=== PATIENT | male | born 1960 | race Caucasian/White ===

== ENCOUNTER → 2020-10-02 | Outpatient (CLI) | payer OTHER ==
[~2020-10-02] MED LIST: HYDROCODON-ACE1 EAC6 PO; IBU800 MG PO
[2020-10-02 11:00] LABS: BUN/CREATININE RATIO 24 (0-10)
[2020-10-02 11:53] LABS: RED BLOOD COUNT 4.9 M/UL (4.20-5.50); WHITE BLOOD COUNT 6.2 K/UL (4.5-11.0)
== END ==
LOC: OPSV2 09:00
PROVIDERS: Orthopaedic Surgery
DX: Z01.818 Encounter for other preprocedural examination (principal); M75.101 Unspecified rotator cuff tear or rupture of right shoulder, not specified as traumatic
CPT/HCPCS: 36415; 71046; 80048; 85025; 93005

== ENCOUNTER → 2020-10-09 | Day surgery (SDC) | payer OTHER ==
[~2020-10-09] VITALS: Ht 175.3 cm; Wt 98.4 kg
== END | disposition home or self-care (01) ==
LOC: OR 07:36
PROVIDERS: Orthopaedic Surgery
PROC: 0LQ10ZZ Repair Right Shoulder Tendon, Open Approach (ICD-10-PCS; principal; 2020-10-09 09:30)
DX: S46.011A Strain of muscle(s) and tendon(s) of the rotator cuff of right shoulder, initial encounter (principal); V89.2XXA Person injured in unspecified motor-vehicle accident, traffic, initial encounter; M19.90 Unspecified osteoarthritis, unspecified site; Z87.891 Personal history of nicotine dependence; Z20.822 Contact with and (suspected) exposure to COVID-19
CPT/HCPCS: C1713; J0171; J0690; J1100; J1885; J2001; J2250; J2405; J2704; J2710; J2795; J3010; J7120